=== PATIENT | male | born 1985 | race Hispanic/Latino ===

== ENCOUNTER 2018-12-13 05:46 | Emergency (ER) | payer OTHER ==
[~2018-12-13] VITALS: Ht 177.8 cm; Wt 78.9 kg
[2018-12-13] MEDS ORDERED: ANTIBIOTIC PO (05:58)
[2018-12-13] MEDS ORDERED: BACTRIM DS TAB1 EACH PO (06:26)
== END 2018-12-13 06:46 | disposition home or self-care (01) ==
LOC: ED 05:46
PROC: 0H9KXZZ Drainage of Right Lower Leg Skin, External Approach (ICD-10-PCS; principal; 2018-12-13)
DX: M71.061 Abscess of bursa, right knee (principal); F17.200 Nicotine dependence, unspecified, uncomplicated
CPT/HCPCS: 10060; 73560; 87070; 87077; 87186; 87205; 99283-25